=== PATIENT | female | born 1955 | race Two or more races ===

== ENCOUNTER 2025-03-10 05:36 | Inpatient (IN) | payer MEDICARE, OTHER ==
[~2025-03-10] VITALS: Ht 160 cm; Wt 50.0 kg
[2025-03-10 05:53] VITALS: PULSE 106; RESP 16; O2SAT 95
[2025-03-10] MEDS: ONDANSETRON HCL 4 MG/2 ML VIAL IV ONE (06:11)
--- NOTE | 2025-03-10 06:11 | ED.PDOC ---
GI ASSESSMENT HPI Comments 70 year old female PARAMJIT presents to the ED with chief complaint of abdominal pain. EMS reports that the patient is a transfer from [facility], being sent here due to being diagnosed with a right obstructive renal stone and hydroureteronephrosis EMS relays that the patient has been complaining of right lower abdominal pain with associated nausea and vomiting for the past 3 days. Patient relays that her pain has improved since being transferred and she is comfortable at this time. Patient denies any diarrhea, fever, chills, dysuria, or hematuria. Chief Complaint: Abdominal Pain Time Seen by MD: 06:04 Reviewed Notes: Nurses Notes, Supply Analyst Notes, Medications, Allergies Allergies: Coded Allergies: NO KNOWN ALLERGIES (Unverified , 03/10/25) Information Source: Patient, Emergency Med Personnel Mode of Arrival: EMS Timing: Days Duration: Since onset Prehospital treatment: None Quality: Sharp Vomitus: Watery Stool: Normal Severity: Moderate Recent: None Recent Hx of: None Pain Location: RLQ Modifying Factors: Nothing Associated sign and symptoms: Nausea, Vomiting Past Medical History PAST MEDICAL HISTORY: HTN, Thyroid Surgical History: Denies all surgeries PHOTOGRAMMETRIST History: No Pertinent PHOTOGRAMMETRIST History Family History Family History: Reviewed,noncontributory to illness Social History Smoker: Non-Smoker Alcohol: Denies ETOH Use Drugs: Denies Drug Use Lives In: Home Constitutional: denies: chills, diaphoresis, fatigue, fever, malaise, sweats, weakness, others EENTM: denies: blurred vision, double vision, ear bleeding, ear discharge, ear drainage, ear pain, ear ringing, eye pain, eye redness, hearing loss, mouth pain, mouth swelling, nasal discharge, nose bleeding, nose congestion, nose pain, photophobia, tearing, throat pain, throat swelling, voice changes, others Respiratory: denies: cough, hemoptysis, orthopnea, SOB at rest, shortness of breath, SOB with excertion, stridor, wheezing, others Cardiovascular: denies: chest pain, dizzy spells, diaphoresis, Dyspnea on exertion, edema, irregular heart beat, left arm pain, lightheadedness, pal pitations, PND, syncope, others Gastrointestinal: reports: abdominal pain, nausea, vomiting; denies: abdomen distended, blood streaked bowels, constipated, diarrhea, dysphagia, difficulty swallowing, hematemesis, melena, poor appetite, poor fluid intake, rectal bleeding, rectal pain, others Genitourinary: denies: abnormal vagina bleeding, burning, dyspareunia, dysuria, flank pain, frequency, hematuria, incontinence, pain, , vagina discharge, urgency, others Neurological: denies: dizziness, fainting, headache, left sided numbness, left sided weakness, numbness, paresthesia, pre-existing deficit, right sided numbness, right sided weakness, seizure, speech problems, tingling, tremors, weakness, others Musculoskeletal: denies: back pain, gout, joint pain, joint swelling, muscle pain, muscle stiffness, neck pain, others Integumetry: denies: bruises, change in color, change in hair/nails, dryness, laceration, lesions, lumps, rash, wounds, others Allergic/Immunocompromised: denies: Difficulty Healing, Frequent Infections, Hives, Itching, others Hematologic/Lymphatic: denies: anemia, blood clots, easy bleeding, easy bruising, swollen glands, others Endocrine: denies: excessive hunger, excessive sweating, excessive thirst, excessive urination, flushing, intolerance to cold, intolerance to heat, unexplained weight gain, unexplained weight loss, others Psychiatric: denies: anxiety, bipolar disorder, depression, hopeless, panic disorder, schizophrenia, sleepless, suicidal, others All Other Systems: Reviewed and Negative Physical Exam General Appearance: Moderate Distress, Normal HEENT: Normal ENT Inspection, Pharynx Normal, TMs Normal Neck: Full Range of Motion, Non-Tender, Normal, Normal Inspection Respiratory: Chest Non-Tender, Lungs Clear, No Accessory Muscle Use, No Respiratory Distress, Normal Breath Sounds Cardiovascular: No Edema, No JVD, No Murmur, No Gallop, Normal Peripheral Pulses, Regular Rate/Rhythm Breast Exam: Deferred Gastrointestinal: No Organomegaly, Non Tender, No Pulsatile Mass, Normal Bowel Sounds, Soft Genitalia: Deferred Pelvic: Deferred Rectal: Deferred Extremities: No calf tenderness, Normal capillary refill, Normal inspection, Normal range of motion, Non-tender, No pedal edema Musculoskeletal : Apperance: Normal Neurologic: Alert, picker operator II-XII nml as Tested, No Motor Deficits, Normal Affect, Normal Mood, No Sensory Deficits Cerebellar Function: NOT DONE Reflexes: NOT DONE Skin: Dry, Normal Color, Warm Peripheral Pulses: 3+ Radial (R), 3+ Radial (L) Lymphatic: No Adenopathy Was a procedure done? Was a procedure done?: No GI differential Dx Differential Diagnosis: Constipation, Diverticular disease, Esophagitis, Gastritis/PUD, Gastroenteritis X-Ray, Labs, Meds, VS Vital Signs Date Time Temp Pulse Resp B/P (MAP) Pulse Ox O2 Delivery O2 Flow Rate FiO2 03/10/25 05:53 106 16 95 Room Air* 0 21 03/10/25 05:53 98.0 106 16 147/61 (89) 95 98.0 03/10/25 05:36 98.6 107 18 185/71 (109) 94 98.6 Lab Test 03/10/25 06:16 Range/Units White Blood Count 11.4 H 4.4-10.8 10^3/uL Red Blood Count 4.40 4.0-5.20 10^6/uL Hemoglobin 13.3 12.2-16.2 g/dL Hematocrit 39.6 36.0-46.0 % Mean Corpuscular Volume 90.0 80.0-100.0 fL Mean Corpuscular Hemoglobin 30.3 28.0-32.0 pg Mean Corpuscular Hemoglobin Concent 33.7 32.0-36.0 g/dL Red Cell Distribution Width 13.2 11.8-14.3 % Platelet Count 201 140-450 10^3/uL Mean Platelet Volume 9.3 6.9-10.8 fL Neutrophils (%) (Auto) 71.7 37.0-80.0 % Lymphocytes (%) (Auto) 16.8 10.0-50.0 % Monocytes (%) (Auto) 10.9 0.0-12.0 % Eosinophils (%) (Auto) 0.1 0.0-7.0 % Basophils (%) (Auto) 0.5 0.0-2.0 % Neutrophils # (Auto) 8.2 1.6-8.6 10 ^3/uL Lymphocytes # (Auto) 1.9 0.4-5.4 10 ^3/uL Monocytes # (Auto) 1.2 0-1.3 10 ^3/uL Eosinophils # (Auto) 0 0-0.8 10 ^3/uL Basophils # (Auto) 0.1 0-0.2 10 ^3/uL Nucleated Red Blood Cells 0.0 % Sodium Level 141 136-145 mmol/L Potassium Level 3.7 3.5-5.1 mmol/L Chloride Level 111 H 98-107 mmol/L Carbon Dioxide Level 21 20-31 mmol/L Anion Gap 9 5-15 Blood Urea Nitrogen Pending Creatinine Pending Glomerular Filtration Rate Calc Pending BUN/Creatinine Ratio Pending Serum Glucose Pending Calcium Level 9.6 8.7-10.4 mg/dL Current Medications Medications (Trade) Dose Ordered Sig/Cordell Route Start Time Stop Time Status Last Admin Sodium Chloride 1,000 ml @ 1,000 mls/hr Q1H ONCE IV 03/10/25 06:00 03/10/25 06:59 03/10/25 06:13 Ketorolac Tromethamine (Toradol Injection) 15 mg ONCE ONCE IV 03/10/25 06:00 03/10/25 06:01 DC 03/10/25 06:13 Tamsulosin HCl (Flomax) 0.4 mg ONCE ONCE PO 03/10/25 06:00 03/10/25 06:01 DC 03/10/25 06:12 Patient alert. Complaining of flank pain. Was transferred from [facility] for kidney stone. Vitals stable. Initially blood pressure was high but normalized. Reviewed her visit. She is making urine. Explained to the patient. Continue monitoring. Chest XR: FINDINGS: Lines and tubes: None There is a nonobstructive bowel gas pattern. No radiodense foci overlying the renal silhouettes. No supine radiographic evidence of pneumoperitoneum. No acute bony finding. There are screws in the left femur. IMPRESSION: 1. Nonobstructive bowel gas pattern. 2. If there is clinical concern for renal stone, CT of the abdomen pelvis without intravenous contrast is recommended. Images Reviewed?: Images reviewed and evaluated by me Time of 1ST Reevaluation: 07:04 Reevaluation 1ST: Unchanged Patient Education/Counseling: Diagnosis, Treatment Family Education/Counseling: No Family Present Additional Information The following tests were ordered, and results were reviewed by me: CBC, CMP, XR KUB Additional Information was gathered from interviewing the following independent historians: EMS I reviewed and agreed with the following test results read by other providers: XR KUB I discussed treatment and results with medical personnel and: Patient Comprehensive systems review obtained and negative except for what is stated in the HPI. Departure 1 Departure Time of Disposition: 06:13 Impression: Primary Impression: Kidney stone Additional Impressions: Hypertension Qualified Codes: I10 - Essential (primary) hypertension Hydronephrosis Qualified Codes: N13.30 - Unspecified hydronephrosis Disposition: ADMITTED INPATIENT Admit to: Med Surg Condition: Guarded Critical Care Note Critical Care Time?: Yes (45 min-critical care time only) Critical care comment: Pain control Stability Stability form required: No Heart Score Heart Score: Heart Score Response (Comments) Value History N/A 0 EKG N/A 0 Age N/A 0 Risk Factors N/A 0 Troponin N/A 0 Total 0 I personally scribed for CARLOS SANTAMARIA MD ([email or web address]) on 03/10/25 at 06:11. Electronically submitted by Carl Crooks ([email or web address]). I personally scribed for CARLOS SANTAMARIA MD ([email or web address]) on 03/10/25 at 06:52. Electronically submitted by Carl Crooks ([email or web address]). CARLOS SANTAMARIA MD Mar 10, 2025 06:11
[2025-03-10] MEDS: TAMSULOSIN HYDROCHLORIDE 0.4 MG CAP PO ONE (06:12)
[2025-03-10] MEDS: SODIUM CHLORIDE 0.9% 1,000 ML IV ONE ×3 (06:13→07:45)
[2025-03-10] MEDS: KETOROLAC TROMETH 30 MG/ML 1ML VIAL IV ONE (06:13)
--- NOTE | 2025-03-10 06:39 | DVH ---
ABDOMINAL RADIOGRAPH Indication: stone Technique: Single frontal view of the abdomen was obtained Comparison: None FINDINGS: Lines and tubes: None There is a nonobstructive bowel gas pattern. No radiodense foci overlying the renal silhouettes. No s upine radiographic evidence of pneumoperitoneum. No acute bony finding. There are screws in the left femur. IMPRESSION: 1. Nonobstructive bowel gas pattern. 2. If there is clinical concern for renal stone, CT of the abdomen pelvis without intravenous contras t is recommended.
[2025-03-10 06:44] LABS: Basophils # (auto) 0.1 10 ^3/uL (0-0.2); Basophils % (auto) 0.5 % (0.0-2.0); Eosinophils # (auto) 0 10 ^3/uL (0-0.8); Eosinophils % (auto) 0.1 % (0.0-7.0); Hematocrit 39.6 % (36.0-46.0); Hemoglobin 13.3 g/dL (12.2-16.2); Lymphocytes # (auto) 1.9 10 ^3/uL (0.4-5.4); Lymphocytes % (auto) 16.8 % (10.0-50.0); Mean Corpuscular Hemoglobin 30.3 pg (28.0-32.0); Mean Corpuscular Hgb Conc. 33.7 g/dL (32.0-36.0); Monocytes # (auto) 1.2 10 ^3/uL (0-1.3); Monocytes % (auto) 10.9 % (0.0-12.0); Neutrophils # (auto) 8.2 10 ^3/uL (1.6-8.6); Neutrophils % (auto) 71.7 % (37.0-80.0); Platelet Count (auto) 201 10^3/uL (140-450); Red Cell Distribution Width 13.2 % (11.8-14.3); White Blood Cell 11.4 10^3/uL (4.4-10.8)
[2025-03-10 06:49] LABS: Chloride 111 mmol/L (98-107); Potassium 3.7 mmol/L (3.5-5.1); Sodium 141 mmol/L (136-145)
[2025-03-10 06:50] LABS: Anion Gap 9 (5-15); Calcium 9.6 mg/dL (8.7-10.4); Carbon Dioxide 21 mmol/L (20-31)
[2025-03-10 06:55] LABS: BUN/Creatinine Ratio 14.6 (10.0-20.0); Blood Urea Nitrogen 19 mg/dL (9-23); Glucose 97 mg/dL (74-106)
[2025-03-10 07:50] VITALS: PULSE 90; RESP 18; O2SAT 96
[2025-03-10] MEDS ORDERED: ONDANSETRON HCL 4 MG/2 ML VIAL IV PRN (08:15)
[2025-03-10] MEDS ORDERED: ACETAMINOPHEN 325 MG TAB PO PRN (08:15)
[2025-03-10] MEDS ORDERED: MECLIZINE HCL 25 MG TAB PO PRN (08:15)
[2025-03-10] MEDS ORDERED: HYDROcodone-ACET 5/325MG TAB PO PRN (08:15)
[2025-03-10] MEDS ORDERED: ATOR10TA52 PO (08:18)
[2025-03-10] MEDS ORDERED: CARV12.544 PO (08:18)
[2025-03-10] MEDS ORDERED: LEVO150T10 PO (08:18)
[2025-03-10] MEDS ORDERED: CITA-77 PO (08:18)
[2025-03-10] MEDS: PIPERACILLIN-TAZOB 3.375GM 100 ML IV ONE (08:30)
[2025-03-10 08:37] LABS: Urine Bacteria FEW /hpf (None Seen); Urine Blood 1+ /uL (Negative); Urine Clarity Ex.Turbid (Clear); Urine Color Colorless (Yellow); Urine Protein, UAD TRACE (Negative); Urine Specific Gravity 1.012 (1.001-1.035); Urine Squamous Epithelial Cell FEW /hpf (<5); Urine Urobilinogen Normal (Negative); Urine WBC 1502 /HPF (0-5)
--- NOTE | 2025-03-10 08:37 | DVHHP2 ---
History of Present Illness Reason for Visit: Abdominal pain History of Present Illness Dana Banuelos is a 70-year-old female with past medical history of hypertension, hyperlipidemia, GERD, depression, hypothyroidism, and left hip repair who presents to the ED with abdominal pain, nausea, and vomiting x 4 days. Patient is a transfer from [facility]. Patient reports that she had bilateral lower quadrant discomfort and was radiating to the right flank. However upon examination patient states that she no longer has abdominal pain or right flank pain. Patient does report that she was voiding cloudy urine with no hematuria. Patient denies any chest pain, shortness of breath, fever, chills, lightheadedness, weakness, dizziness, recent trauma or injury, recent sick contacts, recent ingestion of spoiled food, or diarrhea. Cardiovascular: HTN, hyperipidemia GI: GERD Psych: Depression Endocrine: Hypothyroidism Past Surgical History: Other (Left hip repair) Family History: Other (Both ) Smoke: No ALCOHOL: none Drugs: None Lives: with Family Domestic Violence: Neg Review of Systems Gastrointestinal: Nausea, Vomiting, Abdominal Pain Allergies: Coded Allergies: NO KNOWN ALLERGIES (Unverified , 03/10/25) Exam Vital Signs Vital Signs Date Time Temp Pulse Resp B/P (MAP) Pulse Ox O2 Delivery O2 Flow Rate FiO2 03/10/25 07:50 90 18 96 Room Air* 0 21 03/10/25 07:49 97.4 131/57 (81) 97.4 General Appearance: Alert, Oriented X3, Cooperative, No acute distress HEENT: Atraumatic, PERRLA, EOMI, Mucous membr. moist/pink Respiratory: Clear to auscultation, Normal air movement Cardiovascular: Normal S1, Normal S2, No murmurs Abdominal: Normal bowel sounds, Soft, No tenderness, No hepatospenomegaly, No masses Extremities: No clubbing, No cyanosis, No edema, Normal pulses, No tenderness/swelling Skin: No rashes, No breakdown, No significant lesion Neuro: Normal speech, Strength at 5/5 X4 ext, Normal tone, Sensation intact Psych/Mental Status: Mental status NL, Mood NL Labs/Xrays Labs Test 03/10/25 06:16 Range/Units White Blood Count 11.4 H 4.4-10.8 10^3/uL Red Blood Count 4.40 4.0-5.20 10^6/uL Hemoglobin 13.3 12.2-16.2 g/dL Hematocrit 39.6 36.0-46.0 % Mean Corpuscular Volume 90.0 80.0-100.0 fL Mean Corpuscular Hemoglobin 30.3 28.0-32.0 pg Mean Corpuscular Hemoglobin Concent 33.7 32.0-36.0 g/dL Red Cell Distribution Width 13.2 11.8-14.3 % Platelet Count 201 140-450 10^3/uL Mean Platelet Volume 9.3 6.9-10.8 fL Neutrophils (%) (Auto) 71.7 37.0-80.0 % Lymphocytes (%) (Auto) 16.8 10.0-50.0 % Monocytes (%) (Auto) 10.9 0.0-12.0 % Eosinophils (%) (Auto) 0.1 0.0-7.0 % Basophils (%) (Auto) 0.5 0.0-2.0 % Neutrophils # (Auto) 8.2 1.6-8.6 10 ^3/uL Lymphocytes # (Auto) 1.9 0.4-5.4 10 ^3/uL Monocytes # (Auto) 1.2 0-1.3 10 ^3/uL Eosinophils # (Auto) 0 0-0.8 10 ^3/uL Basophils # (Auto) 0.1 0-0.2 10 ^3/uL Nucleated Red Blood Cells 0.0 % Sodium Level 141 136-145 mmol/L Potassium Level 3.7 3.5-5.1 mmol/L Chloride Level 111 H 98-107 mmol/L Carbon Dioxide Level 21 20-31 mmol/L Anion Gap 9 5-15 Blood Urea Nitrogen 19 9-23 mg/dL Creatinine 1.30 H 0.550-1.02 mg/dL Glomerular Filtration Rate Calc 44 >90 mL/min BUN/Creatinine Ratio 14.6 10.0-20.0 Serum Glucose 97 74-106 mg/dL Calcium Level 9.6 8.7-10.4 mg/dL ABDOMINAL RADIOGRAPH Indication: stone Technique: Single frontal view of the abdomen was obtained Comparison: None FINDINGS: Lines and tubes: None There is a nonobstructive bowel gas pattern. No radiodense foci overlying the renal silhouettes. No supine radiographic evidence of pneumoperitoneum. No acute bony finding. There are screws in the left femur. IMPRESSION: 1. Nonobstructive bowel gas pattern. 2. If there is clinical concern for renal stone, CT of the abdomen pelvis without intravenous contrast is recommended. Assessment/Plan Assessment/Plan Assessment Intractable abdominal pain with nausea and vomiting probable gastritis versus enteritis Leukocytosis rule out gastritis versus enteritis versus UTI DISHA Hypertensive urgency History of hypertension History of hyperlipidemia History of GERD History of depression History of hypothyroidism History of left hip repair Plan Admit to med surge KUB NS 3 L given in ED Flomax Pain management Antiemetics UA CT abdomen and pelvis IV antibiotics-Zosyn Home medications reconciled DVT prophylaxis-Lovenox PUD prophylaxis-Protonix Discussed plan of care with patient and nurse Plan discussed with: Patient My Orders Orders - AISSATOU GREGG Procedure Category Date Status Time Ct Ab Pel Wo Con-No CT 03/10/25 Taken Oral Or Iv 07:45 Date of Service: Mar 10, 2025 Billing Provider: AISSATOU GREGG Common Visit Codes: [id number] INP/OBS CARE (HIGH) AISSATOU GREGG Mar 10, 2025 08:37
--- NOTE | 2025-03-10 08:40 | DVH ---
Exam: CT CT AB PEL WO CON-NO ORAL OR IV History: abd pain Comparison Study: None available at time of dictation. Technique: Multidetector spiral CT of the abdomen and pelvis was performed from lung bases to pubic s ymphysis. Imaging was performed without intravenous contrast. Coronal and sagittal multiplanar reform ats were obtained from the axial data set by the technologist. Radiation Dose : 1. Abdomen/Pelvis: CTDIvol 6.36 mGy, DLP 304.18 mGy*cm. Findings: Evaluation of vasculature and solid organs is limited due to lack of intravenous contrast use. Lung Bases: Bilateral lower lobe atelectasis. Visualized portions of the heart and pericardium are un remarkable. Liver: The liver is normal in size. No focal lesions. Gallbladder and Biliary Tree: The gallbladder is distended. No intrahepatic or extrahepatic biliary d uctal dilatation. Spleen: Unremarkable Pancreas: The pancreas is grossly unremarkable. Adrenal Glands: Unremarkable Kidneys: Severe right hydronephrosis. Questionable right retroperitoneal mass anterior to the dilated right renal pelvis. Punctate nonobstructive right intrarenal calculi. Left renal atrophy. GI tract: The stomach is grossly normal in appearance. No evidence of small bowel wall thickening or abnormal dilatation to suggest bowel obstruction. Colonic diverticulosis without acute diverticulitis . The appendix is not visualized, however no inflammatory changes in the right lower quadrant to sugg est acute appendicitis. Peritoneum/mesentery/retroperitoneum. No evidence of free intraperitoneal air. No ascites. No evidenc e of suspicious lymphadenopathy. Abdominal Wall: Unremarkable. Vasculature: The visualized abdominal aorta is normal in size and caliber. Evaluation of abdominal a nd pelvic vessels is limited due to lack of intravenous contrast. Urinary Bladder: Grossly unremarkable for degree of distention. Pelvic Organs: Unremarkable Musculoskeletal: No aggressive focal bony lesions, acute fractures or dislocation. Left femoral scre ws noted. S shaped scoliosis. Multilevel lumbar spondylosis. IMPRESSION: 1. Severe right hydronephrosis. There is a questionable right retroperitoneal mass anterior to the di lated right renal pelvis. A CT of the abdomen with IV contrast is recommended. Nonobstructive right intrarenal calculi. 2. Distended gallbladder. No inflammatory changes.
[2025-03-10] MEDS: ENOXAPARIN SOD 40 MG/0.4 ML SYRINGE SC SCH (09:34)
[2025-03-10] MEDS: PANTOPRAZOLE 40 MG/10 ML VIAL INJ IV SCH (10:00)
[2025-03-10] MEDS: CITALOPRAM HYDROBR 20 MG TAB PO SCH (10:00)
[2025-03-10] MEDS: ASPirin 81 mg TAB PO SCH (10:00)
[2025-03-10] MEDS: POTASSIUM CHLORIDE 8 MEQ TAB PO SCH (10:00)
[2025-03-10] MEDS: amLODIPine BESYLATE 5 MG TAB PO SCH (10:00)
[2025-03-10] MEDS: FUROSEMIDE 20 MG TAB PO SCH (10:00)
[2025-03-10] MEDS: MAGNESIUM OXIDE 400 MG TAB PO SCH (10:00)
[2025-03-10] MEDS: CARVEDILOL 12.5 MG TAB PO SCH (10:00)
[2025-03-10] MEDS: PIPERACILLIN-TAZOB 3.375GM 100 ML IV SCH (14:49)
[2025-03-10 19:05] VITALS: BP 155/100; PULSE 96; RESP 19; TEMP 97.9; O2SAT 95
[2025-03-10 20:00] VITALS: BP 132/49; PULSE 92; RESP 20; TEMP 97.9; O2SAT 95
[2025-03-10 21:00] VITALS: BP 132/49; PULSE 92; RESP 20; TEMP 97.9; O2SAT 95
[2025-03-10] MEDS: ATORVASTATIN 20 MG TAB PO SCH (21:43)
[2025-03-11] VITALS (8 sets, daily range): BP systolic 120–166; BP diastolic 42–67; PULSE 66–83; RESP 12–18; TEMP 97.7–98.7; O2SAT 91–94
[2025-03-11 05:57] LABS: Basophils # (auto) 0.1 10 ^3/uL (0-0.2); Basophils % (auto) 1.1 % (0.0-2.0); Eosinophils # (auto) 0.1 10 ^3/uL (0-0.8); Eosinophils % (auto) 1.3 % (0.0-7.0); Hemoglobin 11.6 g/dL (12.2-16.2); Lymphocytes # (auto) 1.8 10 ^3/uL (0.4-5.4); Lymphocytes % (auto) 28.5 % (10.0-50.0); Mean Corpuscular Hemoglobin 30.9 pg (28.0-32.0); Mean Corpuscular Hgb Conc. 34.1 g/dL (32.0-36.0); Mean Corpuscular Volume 90.7 fL (80.0-100.0); Monocytes # (auto) 0.7 10 ^3/uL (0-1.3); Monocytes % (auto) 10.4 % (0.0-12.0); Neutrophils # (auto) 3.7 10 ^3/uL (1.6-8.6); Neutrophils % (auto) 58.7 % (37.0-80.0); Platelet Count (auto) 161 10^3/uL (140-450); Red Blood Cells 3.75 10^6/uL (4.0-5.20); Red Cell Distribution Width 13.4 % (11.8-14.3); White Blood Cell 6.4 10^3/uL (4.4-10.8)
[2025-03-11 06:11] LABS: Alanine Aminotransferase 12 U/L (7-40); Alkaline Phosphatase 55 U/L (46-116); Anion Gap 8 (5-15); BUN/Creatinine Ratio 14.4 (10.0-20.0); Blood Urea Nitrogen 21 mg/dL (9-23); Calcium 9.5 mg/dL (8.7-10.4); Carbon Dioxide 22 mmol/L (20-31); Glucose 80 mg/dL (74-106); Potassium 4.4 mmol/L (3.5-5.1); Sodium 143 mmol/L (136-145)
[2025-03-11 06:12] LABS: Albumin 3.7 g/dL (3.2-4.8); Aspartate Aminotransferase 21 U/L (13-40); Bilirubin, Total 1.2 mg/dL (0.2-1.0)
[2025-03-11 06:15] LABS: Chloride 113 mmol/L (98-107); Total Protein 5.7 g/dL (5.7-8.2)
[2025-03-11] MEDS: LEVOTHYROXINE SODIUM 50 MCG TAB PO SCH (09:42)
--- NOTE | 2025-03-11 13:31 | DVHPN2 ---
Subjective The patient is seen and examined at bedside. Still complain of abdominal pain. Reviewed: Care Plan, H&P, Labs, Medications, Previous Orders Changes from previous H/P or p: No Changes Gastrointestinal: Nausea, Vomiting, Abdominal Pain Objective Vitals Vital Signs Date Time Temp Pulse Resp B/P (MAP) Pulse Ox O2 Delivery O2 Flow Rate FiO2 03/11/25 13:00 97.7 70 16 132/42 (72) 92 97.7 03/11/25 08:00 Room Air* 0 21 Intake/Output Intake and Output 03/11/25 07:00 Intake Total 1400 ml Balance 1400 ml Intake Oral 400 ml IV Total 1000 ml # Voids 5 General Appearance: Alert, Oriented X3, Cooperative, No acute distress HEENT: Atraumatic, PERRLA, EOMI, Mucous membr. moist/pink Neck: Supple Lungs: Clear to auscultation, Normal air movement Cardiovascular: Regular rate, Normal S1, Normal S2, No murmurs, Gallops, Rubs Abdomen: Normal bowel sounds, Soft, No tenderness Neuro: Cranial nerves 3-12 NL Psych/Mental Status: Mental status NL Medications Current Medications Medications Dose Ordered Sig/Cordell Route Start Time Stop Time Status Last Admin Dose Admin Piperacillin Sod/ Tazobactam Sod 100 ml @ 25 mls/hr Q8H IV 03/10/25 14:00 03/11/25 05:55 25 MLS/HR Acetaminophen/ Hydrocodone Bitart 1 tab Q4HP PRN PO 03/10/25 08:15 Ondansetron HCl 4 mg Q4HP PRN IV 03/10/25 08:15 Enoxaparin Sodium 40 mg DAILY SC 03/10/25 10:00 03/11/25 09:42 40 MG Acetaminophen 650 mg Q6HP PRN PO 03/10/25 08:15 Potassium Chloride 8 meq DAILY PO 03/10/25 10:00 03/11/25 09:43 8 MEQ Magnesium Oxide 400 mg DAILY PO 03/10/25 10:00 03/11/25 09:43 400 MG Furosemide 20 mg DAILY PO 03/10/25 10:00 03/11/25 09:43 20 MG Meclizine HCl 12.5 mg [id number] PRN PO 03/10/25 08:15 Aspirin 81 mg DAILY PO 03/10/25 10:00 03/11/25 09:44 81 MG Amlodipine Besylate 5 mg DAILY PO 03/10/25 10:00 03/11/25 09:43 5 MG Carvedilol 12.5 mg BID PO 03/10/25 10:00 03/11/25 09:44 12.5 MG Citalopram Hydrobromide 20 mg DAILY PO 03/10/25 10:00 03/11/25 09:42 20 MG Atorvastatin Calcium 10 mg HS PO 03/10/25 22:00 03/10/25 21:43 10 MG Levothyroxine Sodium 150 mcg DAILY PO 03/11/25 10:00 03/11/25 09:42 150 MCG Pantoprazole Sodium 40 mg DAILY IV 03/10/25 10:00 03/11/25 09:42 40 MG Laboratory Results Laboratory Tests 03/11/25 04:57 Chemistry Test 03/11/25 04:57 Albumin 3.7 g/dL (3.2-4.8) Calcium Level 9.5 mg/dL (8.7-10.4) Total Protein 5.7 g/dL (5.7-8.2) LFT Test 03/11/25 04:57 Alanine Aminotransferase (ALT) 12 U/L (7-40) Alkaline Phosphatase 55 U/L (46-116) Aspartate Amino Transferase (AST) 21 U/L (13-40) Total Bilirubin 1.2 mg/dL (0.2-1.0) H Urinalysis Test 03/10/25 08:07 Urine Color Colorless (Yellow) Urine Clarity Ex.turbid (Clear) Urine pH 6.0 (5.0-9.0) Urine Specific [place] 1.012 (1.001-1.035) Urine Protein Trace (Negative) H Urine Ketones Negative (Negative) Urine Blood 1+ /uL (Negative) H Urine Nitrite 1+ (Negative) H Urine Bilirubin Negative (Negative) Urine Urobilinogen Normal mg/dL (Negative) Urine Leukocyte Esterase 3+ /uL (Negative) Urine RBC 48 /hpf (0 - 4) Urine Microscopic WBC 1502 /HPF (0-5) H Urine Squamous Epithelial Cells Few /hpf (<5) Urine Bacteria Few /hpf (None Seen) H Urine Glucose Normal mg/dL (Normal) Labs and/or images reviewed: Labs reviewed by me Assessment/Plan Assessment/Plan Intractable abdominal pain with nausea and vomiting probable gastritis versus enteritis Leukocytosis rule out gastritis versus enteritis versus UTI DISHA Hypertensive urgency Hyperlipidemia GERD Depression Hypothyroidism History of left hip repair Continuing current management. Continuing with Zofran p.r.n. for nausea and vomiting. Continuing with IV antibiotic. Continuing with IV fluid. Discharge planning. This medical document was created using an electronic medical record system with [employer] direct computerized dictation system. Although this document has been carefully reviewed, there may still be some phonetic and typographical errors. These areas are purely typographical due to imperfections of the software programs, and do not reflect any compromise in the patient's medical care. Plan discussed with: Patient Date of Service: Mar 11, 2025 Billing Provider: ROSALINA SALDANA MD Common Visit Codes: [id number] INP/OBS CARE(HIGH) ROSALINA SALDANA MD Mar 11, 2025 13:31
--- NOTE | 2025-03-11 19:13 | DVHINCON2 ---
Date of service: Mar 11, 2025 Referring Physician [facility] Reason for Consultation right hydro History of Present Illness hx of right flank pain now improved sice admission yesterday;saw uo previously in [place] and told she had a problem with right kidney;denies hematuria,UTIs Past Medical History reviewed Past Surgical History reviewed Family History: Hypertension G8 MOTHER G8 FATHER Allergies: Coded Allergies: NO KNOWN ALLERGIES (Unverified , 03/10/25) Home Meds Reported Medications Levothyroxine Sodium (Levothyroxine Sodium) 150 Mcg Tab, 1 TAB PO DAILY 03/10/25 Citalopram Hydrobromide (Citalopram Hydrobromide) 20 Mg Tab, 1 TAB PO DAILY 03/10/25 Atorvastatin Calcium (ATORVASTATIN CALCIUM) 10 Mg Tab, 1 TAB PO DAILY 03/10/25 Carvedilol (Carvedilol) 12.5 Mg Tab, 1 TAB PO BID 03/10/25 Current Medications Current Medications Medications (Trade) Dose Ordered Sig/[place] Route PRN Reason Start Time Stop Time Status Last Admin Atorvastatin Calcium (Lipitor) 10 mg HS PO 03/10/25 22:00 03/10/25 21:43 Levothyroxine Sodium (Synthroid Tablet) 150 mcg DAILY PO 03/11/25 10:00 03/11/25 09:42 Review of Systems reviewed Vital Signs Vital Signs Date Time Temp Pulse Resp B/P (MAP) Pulse Ox O2 Delivery O2 Flow Rate FiO2 03/11/25 17:00 97.7 73 16 145/54 (84) 93 97.7 03/11/25 08:00 Room Air* 0 21 Labs/Diagnostic Data Labs Test 03/11/25 04:57 03/10/25 08:07 03/10/25 03:16 Range/Units White Blood Count 6.4 # 4.4-10.8 10^3/uL Red Blood Count 3.75 L 4.0-5.20 10^6/uL Hemoglobin 11.6 L 12.2-16.2 g/dL Hematocrit 34.0 #L 36.0-46.0 % Mean Corpuscular Volume 90.7 80.0-100.0 fL Mean Corpuscular Hemoglobin 30.9 28.0-32.0 pg Mean Corpuscular Hemoglobin Concent 34.1 32.0-36.0 g/dL Red Cell Distribution Width 13.4 11.8-14.3 % Platelet Count 161 140-450 10^3/uL Mean Platelet Volume 9.3 6.9-10.8 fL Neutrophils (%) (Auto) 58.7 37.0-80.0 % Lymphocytes (%) (Auto) 28.5 10.0-50.0 % Monocytes (%) (Auto) 10.4 0.0-12.0 % Eosinophils (%) (Auto) 1.3 0.0-7.0 % Basophils (%) (Auto) 1.1 0.0-2.0 % Neutrophils # (Auto) 3.7 1.6-8.6 10 ^3/uL Lymphocytes # (Auto) 1.8 0.4-5.4 10 ^3/uL Monocytes # (Auto) 0.7 0-1.3 10 ^3/uL Eosinophils # (Auto) 0.1 0-0.8 10 ^3/uL Basophils # (Auto) 0.1 0-0.2 10 ^3/uL Nucleated Red Blood Cells 0.0 % Sodium Level 143 136-145 mmol/L Potassium Level 4.4 3.5-5.1 mmol/L Chloride Level 113 H 98-107 mmol/L Carbon Dioxide Level 22 20-31 mmol/L Anion Gap 8 5-15 Blood Urea Nitrogen 21 9-23 mg/dL Creatinine 1.46 H 0.550-1.02 mg/dL Glomerular Filtration Rate Calc 38 >90 mL/min BUN/Creatinine Ratio 14.4 10.0-20.0 Serum Glucose 80 74-106 mg/dL Calcium Level 9.5 8.7-10.4 mg/dL Total Bilirubin 1.2 H 0.2-1.0 mg/dL Aspartate Amino Transferase (AST) 21 13-40 U/L Alanine Aminotransferase (ALT) 12 7-40 U/L Alkaline Phosphatase 55 46-116 U/L Total Protein 5.7 5.7-8.2 g/dL Albumin 3.7 3.2-4.8 g/dL Urine Color Colorless Yellow Urine Clarity Ex.turbid Clear Urine pH 6.0 5.0-9.0 Urine Specific [place] 1.012 1.001-1.035 Urine Protein Trace H Negative Urine Ketones Negative Negative Urine Blood 1+ H Negative /uL Urine Nitrite 1+ H Negative Urine Bilirubin Negative Negative Urine Urobilinogen Normal Negative mg/dL Urine Leukocyte Esterase 3+ Negative /uL Urine RBC 48 0 - 4 /hpf Urine Microscopic WBC 1502 H 0-5 /HPF Urine Squamous Epithelial Cells Few <5 /hpf Urine Bacteria Few H None Seen /hpf Urine Glucose Normal Normal mg/dL Assessment right hydronphrosis etiology unknow ,possibly congenital hydro Plan discussed with: Patient MAYA SHERIFF MD Mar 11, 2025 19:13
[2025-03-12 01:00] VITALS: BP 109/45; PULSE 65; RESP 16; TEMP 97.3; O2SAT 97
[2025-03-12 05:00] VITALS: BP 128/58; PULSE 71; RESP 16; TEMP 97.5; O2SAT 98
[2025-03-12 09:04] VITALS: BP 127/74; PULSE 65; RESP 18; TEMP 98.2; O2SAT 97
[2025-03-12 13:09] VITALS: BP 133/90; PULSE 63; RESP 18; TEMP 97.5; O2SAT 95
[2025-03-12] MEDS ORDERED: LEVO500T91 PO (14:14)
--- NOTE | 2025-03-12 14:16 | DVHDS2 ---
Discharge Summary Date of Admission Mar 10, 2025 at 08:08 Date of Discharge: Mar 12, 2025 Admitting Diagnosis Intractable abdominal pain with nausea and vomiting probable gastritis versus enteritis Leukocytosis rule out gastritis versus enteritis versus UTI DISHA Hypertensive urgency Hyperlipidemia GERD Depression Hypothyroidism History of left hip repair Labs/Diagnostic Data: Laboratory Results Test 03/11/25 04:57 03/10/25 08:07 03/10/25 03:16 White Blood Count 6.4 10^3/uL (4.4-10.8) Red Blood Count 3.75 10^6/uL (4.0-5.20) Hemoglobin 11.6 g/dL (12.2-16.2) Hematocrit 34.0 % (36.0-46.0) Mean Corpuscular Volume 90.7 fL (80.0-100.0) Mean Corpuscular Hemoglobin 30.9 pg (28.0-32.0) Mean Corpuscular Hemoglobin Concent 34.1 g/dL (32.0-36.0) Red Cell Distribution Width 13.4 % (11.8-14.3) Platelet Count 161 10^3/uL (140-450) Mean Platelet Volume 9.3 fL (6.9-10.8) Neutrophils (%) (Auto) 58.7 % (37.0-80.0) Lymphocytes (%) (Auto) 28.5 % (10.0-50.0) Monocytes (%) (Auto) 10.4 % (0.0-12.0) Eosinophils (%) (Auto) 1.3 % (0.0-7.0) Basophils (%) (Auto) 1.1 % (0.0-2.0) Neutrophils # (Auto) 3.7 10 ^3/uL (1.6-8.6) Lymphocytes # (Auto) 1.8 10 ^3/uL (0.4-5.4) Monocytes # (Auto) 0.7 10 ^3/uL (0-1.3) Eosinophils # (Auto) 0.1 10 ^3/uL (0-0.8) Basophils # (Auto) 0.1 10 ^3/uL (0-0.2) Nucleated Red Blood Cells 0.0 % Sodium Level 143 mmol/L (136-145) Potassium Level 4.4 mmol/L (3.5-5.1) Chloride Level 113 mmol/L (98-107) Carbon Dioxide Level 22 mmol/L (20-31) Anion Gap 8 (5-15) Blood Urea Nitrogen 21 mg/dL (9-23) Creatinine 1.46 mg/dL (0.550-1.02) Glomerular Filtration Rate Calc 38 mL/min (>90) BUN/Creatinine Ratio 14.4 (10.0-20.0) Serum Glucose 80 mg/dL (74-106) Calcium Level 9.5 mg/dL (8.7-10.4) Total Bilirubin 1.2 mg/dL (0.2-1.0) Aspartate Amino Transferase (AST) 21 U/L (13-40) Alanine Aminotransferase (ALT) 12 U/L (7-40) Alkaline Phosphatase 55 U/L (46-116) Total Protein 5.7 g/dL (5.7-8.2) Albumin 3.7 g/dL (3.2-4.8) Urine Color Colorless (Yellow) Urine Clarity Ex.turbid (Clear) Urine pH 6.0 (5.0-9.0) Urine Specific [place] 1.012 (1.001-1.035) Urine Protein Trace (Negative) Urine Ketones Negative (Negative) Urine Blood 1+ /uL (Negative) Urine Nitrite 1+ (Negative) Urine Bilirubin Negative (Negative) Urine Urobilinogen Normal mg/dL (Negative) Urine Leukocyte Esterase 3+ /uL (Negative) Urine RBC 48 /hpf (0 - 4) Urine Microscopic WBC 1502 /HPF (0-5) Urine Squamous Epithelial Cells Few /hpf (<5) Urine Bacteria Few /hpf (None Seen) Urine Glucose Normal mg/dL (Normal) Other Laboratory Tests 03/11/25 04:57 Brief Hx & Hospital Course: This is a 70 years old female with past medical history of hypertension, hyperlipidemia, GERD, depression, hypothyroidism and left hip repair came to emergency department because of intractable nausea o/vomiting and abdominal pain for four days. The patient is transferred from [facility] to [facility]. The patient said that she had bilateral lower quadrant discomfort and ready to the right flank. When she come to [facility] the pain is improved. Patient also had cloudy urine with no hematuria. Is CT scan abdomen pelvis showed: Severe right hydronephrosis. There is a questionable right retroperitoneal mass anterior to the dilated right renal pelvis. A CT of the abdomen with IV contrast is recommended. Nonobstructive right intrarenal calculi. Distended gallbladder. No inflammatory changes. Dr. Dejesus , urologist was consult/ imaging was reviewed by him. He recommend no further workup. 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 Patient was found to have urinary tract infection and was put on IV antibiotic with Zosyn 3.375 g IV Q 8 hours. Subsequently patient improved. Culture did not show any growth. Abdominal pain resolved. Patient able to tolerate food. So I am going to discharge her home. Advised her to follow up with primary care physician 1-2 weeks. Activity as tolerated. Diet per home diet. Physical exam: HEENT: Normocephalic atraumatic pupils equal react to light and accommodation. Extraocular muscles intact, conjunctiva pink, oropharynx moist, no thrush, no exudate. Lymphatic: No lymphadenopathy Cardiovascular exam: S1, S2 was heard. No murmurs, rubs, gallops Lung: Clear on auscultation bilaterally, no wheeze, rale, rhonchi. GI: Abdominal soft, nondistended, nontenderness, positive bowel sounds. Extremity: No crepitus, cyanosis, edema. Pedal pulses present bilateral. Full range of motion. Skin: Normal turgor, no rash. Psych: Alert, oriented x3. Neurology: No focal deficits, cranial nerve II to XII grossly intact. This medical document was created using an electronic medical record system with [employer] direct computerized dictation system. Although this document has been carefully reviewed, there may still be some phonetic and typographical errors. These areas are purely typographical due to imperfections of the software programs, and do not reflect any compromise in the patient's medical care. Condition at Discharge: Stable Final Diagnosis/Problems List Intractable abdominal pain with nausea and vomiting probable gastritis versus enteritis Leukocytosis rule out gastritis versus enteritis versus UTI DISHA Hypertensive urgency Hyperlipidemia GERD Depression Hypothyroidism History of left hip repair Discharge Disposition: Home Discharge Instruct/Medications Diet: Cardiac 2g Na,low cholest Activity: No Restrictions, As Tolerated Follow Up/Referral: PCP 1-2 WEEKS Medications: LEVAQUIN 500MG PO QDAY Discharge Statement: "Patient was advised to return to the ER or call 911 if any headaches, dizziness, shortness of breath, chest pain, abdominal pain, bleeding, fevers, or worsening of medical condition. Patient was counseled about treatment plan, medications, possible side effects, patientverbalized understanding. All questions were answered to the best of my ability. This discharge took greater then 30 minutes in planning, reviewing documentation, counseling the patient, and discussing with other team members." ASSESSMENT ASSESSMENT Assessment UTI Date of Service: Mar 12, 2025 Billing Provider: ROSALINA SALDANA MD Common Visit Codes: 72588-PIU/OBS DISCH DAY >30min ROSALINA SALDANA MD Mar 12, 2025 14:16
[2025-03-12 15:17] VITALS: BP 133/90; PULSE 65; RESP 18; TEMP 98.2; O2SAT 97
[2025-03-12 17:05] VITALS: BP 149/91; PULSE 68; RESP 18; TEMP 97.6; O2SAT 97
[2025-03-13 10:41] LABS: Hepatitis B Surface Antigen Negative (Negative); Hepatitis C Antibody Negative (Negative)
== END 2025-03-12 17:45 | disposition home or self-care (01) | DRG 391 ==
LOC: ER 05:36 → EDBD 05:36 → OVERFLOW 08:08 → WEST WING 18:47
PROVIDERS: ADMIT Internal Medicine; ATTEND Internal Medicine
DX: A09 Infectious gastroenteritis and colitis, unspecified (principal); N17.0 Acute kidney failure with tubular necrosis; N30.01 Acute cystitis with hematuria; K21.9 Gastro-esophageal reflux disease without esophagitis; E78.5 Hyperlipidemia, unspecified; E03.9 Hypothyroidism, unspecified; F32.A Depression, unspecified; N20.0 Calculus of kidney; I10 Essential (primary) hypertension; Z82.49 Family history of ischemic heart disease and other diseases of the circulatory system; Z79.899 Other long term (current) drug therapy; K29.70 Gastritis, unspecified, without bleeding
CPT/HCPCS: 36415; 74018; 74176; 80048; 80053; 81001; 85025; 86803; 87340; 96361; 96374; 99291; G0378; J1885; J2470; J2543

== ENCOUNTER → 2025-03-24 | Outpatient (CLI) | payer MEDICARE, BC ==
[~2025-03-24] MED LIST: ATOR10TA52 PO; CARV12.544 PO; CITA-77 PO; LEVO150T10 PO; LEVO500T91 PO
[2025-03-24 15:04] LABS: Urine Bacteria MOD /hpf (None Seen); Urine Blood 2+ /uL (Negative); Urine Clarity Ex.Turbid (Clear); Urine Protein, UAD 1+ (Negative); Urine Specific Gravity 1.008 (1.001-1.035); Urine Squamous Epithelial Cell None Seen /hpf (<5); Urine Urobilinogen Normal (Negative); Urine WBC 4930 /HPF (0-5); Urine WBC Clumps PRESENT /hpf (None Seen)
[2025-03-24 15:09] LABS: Urine Color DARK YELLOW (Yellow)
== END | disposition home or self-care (01) ==
LOC: LAB 13:39
PROVIDERS: ATTEND Nurse Practitioner
DX: N39.0 Urinary tract infection, site not specified (principal)
CPT/HCPCS: 81001; 87086; 87088; 87186